=== PATIENT | female | born 1955 | race Caucasian/White ===

== ENCOUNTER 2017-02-01 12:41 | Inpatient (IN) | payer OTHER ==
[2017-02-01] MEDS ORDERED: HYDROmorphone 1 MG/ML CARPUJECT IVP STA ×3 (13:33→15:56)
[2017-02-01] MEDS ORDERED: ONDANSETRON 4 MG/2 ML VIAL IVP STA ×2 (13:33→15:25)
[2017-02-01] MEDS ORDERED: SODIUM CHLORIDE 0.9% 1,000 ML IV ONE ×2 (13:33→13:54)
--- NOTE | 2017-02-01 13:38 | ED Physician Documentation ---
PD HPI ABD PAIN - Stated complaint Stated Complaint: ABD PAIN - Chief complaint Chief Complaint: Abd Pain - History obtained from History obtained from: Patient, Family () - History of Present Illness Timing - onset: Other (61-year-old woman with history of cholecystectomy, appendectomy and known diverticula, also moderate alcohol use and gastric sleeve presents with gradual onset central abdominal pain radiating between the shoulder blades starting about 5 hours ago with retching. She had a normal bowel movement yesterday but none today. There is no associated fever or urinary complaints. She says it feels like her former pain back when she had her gallbladder, however it is more on the left than the right.) Review of Systems Ten Systems: 10 systems reviewed and negative Constitutional: denies: Fever, Chills Cardiac: denies: Chest pain / pressure, Palpitations Respiratory: denies: Dyspnea, Cough GI: reports: Abdominal Pain, Nausea, Vomiting. denies: Constipation, Diarrhea PD PAST MEDICAL HISTORY - Past Surgical History Past Surgical History: Yes General: Cholecystectomy, Appendectomy, Bowel surgery - Present Medications Home Medications: Ambulatory Orders Medication Instructions Recorded Confirmed Omeprazole [PriLOSEC] 20 mg PO DAILY 02/01/17 02/01/17 - Allergies Allergies/Adverse Reactions: Allergies Allergy/AdvReac Type Severity Reaction Status Date / Time Opioids - Morphine Analogues AdvReac Dizziness Verified 02/01/17 12:52 - Living Situation Living Situation: reports: With spouse/s.o. - Social History Does the pt smoke?: No Smoking Status: Former smoker Does the pt drink ETOH?: Yes - Family History Family history: reports: Non contributory PD ED PE NORMAL - Vitals Vital signs reviewed: Yes - General General: Alert and oriented X 3, Other (Quite uncomfortable, restless) - HEENT HEENT: PERRL, EOMI - Neck Neck: Supple, no meningeal sign, No bony TTP - Cardiac Cardiac: RRR, No murmur - Respiratory Respiratory: No respiratory distress, Clear bilaterally - Abdomen Abdomen: Normal bowel sounds, Soft, Other (Some right lower quadrant and left mid abdomen tenderness without surgical signs) - Back Back: No CVA TTP, No spinal TTP - Derm Derm: Normal color, Warm and dry - Extremities Extremities: No deformity, No tenderness to palpate, No edema, No calf tenderness / cord - Neuro Neuro: Alert and oriented X 3, Normal speech - Psych Psych: Normal mood, Normal affect Results - Vitals Vitals: Vital Signs - 24 hr 02/01/17 02/01/17 02/01/17 12:47 15:05 16:13 Temperature 36.8 C Heart Rate 92 63 59 L Respiratory 20 16 18 Rate Blood Pressure 151/85 H 124/75 140/78 H O2 Saturation 98 100 100 Oxygen O2 Source Room air - EKG (time done) 1545 Rate: Rate (enter#) (54) Rhythm: NSR [place]: Normal Intervals: Normal ID QRS: Normal Ischemia: Normal ST segments Computer interpretation: Agree with computer - Labs Labs: Laboratory Tests 02/01/17 02/01/17 02/01/17 13:45 13:45 13:45 WBC 6.6 RBC 4.43 Hgb 13.8 Hct 40.4 MCV 91.2 MCH 31.2 H MCHC 34.2 RDW 12.9 Plt Count 176 MPV 7.6 L Neut # 5.3 Lymph # 0.9 L [place] # 0.3 Eos # 0.0 Baso # 0.1 Absolute Nucleated RBC 0.00 Nucleated RBCs 0.0 Sodium 139 Potassium 3.7 Chloride 102 Carbon Dioxide 24 Anion Gap 13.0 BUN 11 Creatinine 0.7 Estimated GFR (MDRD) 85 L Glucose 110 H Calcium 10.5 H Total Bilirubin 0.7 AST 20 ALT 18 Alkaline Phosphatase 47 Troponin I < 0.04 Total Protein 7.9 Albumin 4.8 Globulin 3.1 Albumin/Globulin Ratio 1.5 Lipase 26 Urine Color Urine Clarity Urine pH Ur Specific [place] Urine Protein Urine Glucose (UA) Urine Ketones Urine Occult Blood Urine Nitrite Urine Bilirubin Urine Urobilinogen Ur Leukocyte Esterase Ur Microscopic Review Urine Culture Comments 02/01/17 15:19 WBC RBC Hgb Hct MCV MCH MCHC RDW Plt Count MPV Neut # Lymph # [place] # Eos # Baso # Absolute Nucleated RBC Nucleated RBCs Sodium Potassium Chloride Carbon Dioxide Anion Gap BUN Creatinine Estimated GFR (MDRD) Glucose Calcium Total Bilirubin AST ALT Alkaline Phosphatase Troponin I Total Protein Albumin Globulin Albumin/Globulin Ratio Lipase Urine Color YELLOW Urine Clarity CLEAR Urine pH 8.0 H Ur Specific [place] 1.010 Urine Protein NEGATIVE Urine Glucose (UA) NEGATIVE Urine Ketones 15 H Urine Occult Blood NEGATIVE Urine Nitrite NEGATIVE Urine Bilirubin NEGATIVE Urine Urobilinogen 1 (NORMAL) Ur Leukocyte Esterase NEGATIVE Ur Microscopic Review NOT INDICATED Urine Culture Comments NOT INDICATED - Rads (name of study) Ct A/P Radiology: EMP read contemporaneously (Small bowel obstruction with concern for a closed loop bowel obstruction with vascular compromise, could be ischemic enteritis as well. Status post gastric sleeve.) PD MEDICAL DECISION MAKING - ED course ED course: 61-year-old woman presents with acute abdominal pain, not necessarily clinically obstructed but CT suggestive of same and surgery consulted and will place in observation for serial exams and further workup. - Consults Consults: Consulted (name) (Dr. Chicas, the on-call surgeon, she will be the CAT scan and see the patient, we spoke at around 4:10 PM) Departure - Departure Disposition: ED Place in Observation Clinical Impression: Small bowel obstruction Abdominal pain Qualifiers: Abdominal location: generalized Qualified Code(s): R10.84 - Generalized abdominal pain Condition: Stable
[2017-02-01] MEDS ORDERED: ONDANSETRON 4 MG/2 ML VIAL ONE ×2 (13:53→15:46)
[2017-02-01] MEDS ORDERED: HYDROmorphone 1 MG/ML CARPUJECT ONE ×3 (13:53→16:14)
[2017-02-01] MEDS ORDERED: SODIUM CHLORIDE FLUSH 0.9% 10 ML SYRINGE IVP ONE ×2 (13:53→16:14)
[2017-02-01 14:27] LABS: ALBUMIN/GLOBULIN RATIO 1.5 (1.0-2.2); BILIRUBIN,TOTAL 0.7 mg/dL (0.2-1.0); CALCIUM 10.5 mg/dL (8.5-10.3); CREATININE 0.7 mg/dL (0.4-1.0); POTASSIUM 3.7 mmol/L (3.5-5.0); TOTAL PROTEIN 7.9 g/dL (6.7-8.2)
[2017-02-01 14:32] LABS: BASOPHILS # (AUTO) 0.1 10^3/uL (0.0-0.1); BASOPHILS % (AUTO) 0.9 %; EOSINOPHILS % (AUTO) 0.3 %; HCT - HEMATOCRIT 40.4 % (37.0-47.0); HGB - HEMOGLOBIN 13.8 g/dL (12.0-16.0); LYMPHOCYTES # (AUTO) 0.9 10^3/uL (1.5-3.5); LYMPHOCYTES % (AUTO) 14.4 %; MEAN CORPUSCULAR HEMOGLOBIN 31.2 pg (27.0-31.0); MEAN CORPUSCULAR HGB CONC 34.2 g/dL (32.0-36.0); MEAN CORPUSCULAR VOLUME 91.2 fL (81.0-99.0); MEAN PLATELET VOLUME 7.6 fL (7.9-10.8); MONOCYTES # (AUTO) 0.3 10^3/uL (0.0-1.0); MONOCYTES % (AUTO) 4.3 %; NEUTROPHILS # (AUTO) 5.3 10^3/uL (1.5-6.6); NEUTROPHILS % (AUTO) 80.1 %; RED BLOOD COUNT 4.43 10^6/uL (4.20-5.40); RED CELL DISTRIBUTION WIDTH 12.9 % (12.0-15.0); UNCORRECTED WHITE BLOOD COUNT 6.6 x10^3/uL; WHITE BLOOD COUNT 6.6 x10^3/uL (4.8-10.8)
[2017-02-01] MEDS ORDERED: IOPAMIDOL-300 100 ML VIAL IVP ONE (15:14)
[2017-02-01 15:33] LABS: BILIRUBIN,URINE NEGATIVE (NEGATIVE)
[2017-02-01 15:34] LABS: UA CHARGE (STRIP ONLY) YES; UR CULTURE IF IND NOT INDICATED
--- NOTE | 2017-02-01 15:58 | CT Preliminary Report ---
Exam: CT Abdomen/Pelvis W/ IMPRESSION: 1. There is borderline dilated, fluid-filled lower abdomen small bowel with associated dense mesenter ic edema. Findings are suspicious for small bowel obstruction, possibly closed loop, with vascular co mpromise. Differential consideration would be primary small bowel ischemic enteritis. Enteritis secon ghulam to infection or inflammatory bowel disease are possible but less likely given this appearance. S urgical consultation is recommended. 2. Status post gastric sleeve procedure. CT appearance of the postoperative stomach is within normal limits. 3. No acute solid abdominal organ abnormalities are seen. [facility] SITE ID: [id number]
--- NOTE | 2017-02-01 16:01 | CT Report ---
EXAM: CT ABDOMEN AND PELVIS EXAM DATE: 02/01/2017 02:54 PM. CLINICAL HISTORY: Abdominal pain. COMPARISONS: None. TECHNIQUE: Routine helical CT imaging was performed through the abdomen and pelvis. IV contrast: Yes. Enteric contrast: No. Reconstructions: Coronal and sagittal. In accordance with CT protocol optimization, one or more of the following dose reduction techniques w ere utilized for this exam: automated exposure control, adjustment of mA and/or KV based on patient s ize, or use of iterative reconstructive technique. FINDINGS: Lung Bases: Unremarkable. Liver: Normal. No masses. Gallbladder/Bile Ducts: The gallbladder surgically absent. There is no significant bile duct dilatati on. Spleen: Normal. Pancreas: Normal. Adrenal Glands: There is subcentimeter left adrenal nodule. No acute abnormalities are seen. Kidneys: Normal. No masses or hydronephrosis. Peritoneal Cavity/Bowel: Patient has undergone gastric sleeve procedure. Stomach demonstrates no acut e abnormalities. There is borderline dilated, fluid-filled lower abdomen small bowel with dense adjac ent mesenteric edema. There is a small amount of free fluid within the pelvis. The colon demonstrates no acute abnormalities. No evidence of appendicitis. No enlarged mesenteric or retroperitoneal lymph nodes. Pelvic Organs: No acute pelvic organ abnormalities are seen. Urinary bladder is decompressed. The resighini lamar is surgically absent. Vasculature: There are scattered atheromatous calcifications of the aorta and iliac vessels. Bones: No significant abnormality. Other: There is a small fat-containing paraumbilical hernia without evidence of associated inflammati on. IMPRESSION: 1. There is borderline dilated, fluid-filled lower abdomen small bowel with associated dense mesenter ic edema. Findings are suspicious for small bowel obstruction, possibly closed loop, with vascular co mpromise. Differential consideration would be primary small bowel ischemic enteritis. Enteritis secon ghulam to infection or inflammatory bowel disease are possible but less likely given this appearance. S urgical consultation is recommended. 2. Status post gastric sleeve procedure. CT appearance of the postoperative stomach is within normal limits. 3. No acute solid abdominal organ abnormalities are seen. [facility] The above findings were discussed with Dr Escalante by Dr. Dusty Mcnair at 15:56 hrs on 02/01/17. Referring Provider Line: [phone] SITE ID: [id number]
--- NOTE | 2017-02-01 17:12 | HISTORY & PHYSICAL EXAMINATION ---
DATE OF ADMISSION: 02/01/2017 HISTORY OF PRESENT ILLNESS: This is a 61-year-old female with multiple abdominal surgeries who presented to the emergency department today with a 1- day history of diffuse cramping abdominal pain. [place] previous to this and states that she was consuming 4-5 alcoholic beverages per day. Otherwise she has not changed her diet and has not had any abnormal bowel movements. Her last bowel movement was yesterday. She is passing gas. She is nauseous, but has not vomited. She has a surgical history of a gastric sleeve performed several years ago, as well as a laparoscopic cholecystectomy and laparoscopic appendectomy. On evaluation in the emergency department labs were obtained which demonstrated a normal white blood cell count. A CT scan of the abdomen was performed without oral contrast. This demonstrates borderline dilated fluid filled loops of small bowel with mesenteric edema concerning for possible bowel obstruction. For this reason a surgical consultation was obtained. On my evaluation of the patient she is resting in her bed comfortably. PAST MEDICAL HISTORY: GERD. PAST SURGICAL HISTORY: As stated. HOME MEDICATIONS: 1. Prilosec daily. 2. Multiple vitamin supplementations. ALLERGIES TO MEDICATIONS: OPIOIDS MAKE HER NAUSEOUS AND GIVE HER ALTERED MENTAL STATUS. SOCIAL HISTORY: The patient is . She is retired. She lives on the [place]. PHYSICAL EXAM: VITAL SIGNS: Temperature 36.8, blood pressure 151/85, heart rate 92, respiratory rate 20, O2 saturation is 98% on room air. GENERAL: She is awake, alert, oriented x3 in no acute distress. She is of average build. CARDIOVASCULAR: Regular rate and rhythm. CHEST: Clear to auscultation bilaterally with no rhonchi or wheezing. ABDOMEN: Soft, nondistended, very mildly tender to palpation with no guarding and no rebound tenderness. There was no point tenderness at all on her abdomen. EXTREMITIES: Not edematous. LAB VALUES: Sodium 139, potassium 3.7, chloride 102, bicarb 24, BUN 11, creatinine 0.7, glucose 110, white blood cell count 6.6, hemoglobin 13.8, hematocrit 40.4, platelets 176. ASSESSMENT: This is a 61-year-old female with abdominal pain and a CT scan that may suggest a possible bowel obstruction. PLAN: I do not think the patient has a bowel obstruction. However, I will admit the patient for observation and obtain a small bowel follow through tomorrow. She will be kept NPO during this process, a lactate will be performed to ensure there is no underlying bowel ischemia present. Serial abdominal exams will be performed. If her small bowel series does not demonstrate any evidence of obstruction she will be started on a diet and will likely be discharged home tomorrow. This is all explained to the patient. JOB #: [id number] EXT JOB #:[id number] ANASTACIO
[2017-02-01] MEDS: ONDANSETRON 4 MG/2 ML VIAL IVP PRN (18:21)
[2017-02-01] MEDS: MORPHINE 2 MG/ML CARPUJECT IVP PRN ×3 (18:21→22:42)
[2017-02-01] MEDS: SODIUM CHLORIDE FLUSH 0.9% 10 ML SYRINGE IVP SCH (18:21)
[2017-02-01] MEDS: LACTATED RINGERS 1,000 ML IV SCH (18:21)
[2017-02-02] MEDS: MORPHINE 2 MG/ML CARPUJECT IVP PRN ×9 (01:36→23:38)
[2017-02-02] MEDS: ONDANSETRON 4 MG/2 ML VIAL IVP PRN ×4 (01:36→23:38)
[2017-02-02] MEDS: SODIUM CHLORIDE FLUSH 0.9% 10 ML SYRINGE IVP PRN (01:37)
[2017-02-02] MEDS: LACTATED RINGERS 1,000 ML IV SCH ×3 (03:58→23:37)
[2017-02-02] MEDS: SODIUM CHLORIDE FLUSH 0.9% 10 ML SYRINGE IVP SCH ×3 (06:25→21:19)
[2017-02-02] MEDS ORDERED: BARIUM SULFATE 148 GM POWDER PO ONE (15:35)
--- NOTE | 2017-02-02 16:37 | XRAY Report ---
SMALL BOWEL FOLLOWTHROUGH: 02/02/2017 CLINICAL INDICATION: Evaluate obstruction. FINDINGS: Initial laborer airport maintenance view of the abdomen demonstrates postoperative changes of gastric sleeve and cholecystectomy. The patient ingested barium. Some barium was vomited during the course of the examination. There is dilatation of the duodenum and jejunum, with an abrupt caliber transition in the midline upper pelvis. A small amount of contrast did move past the obstruction site, with nondilated small bowel loops first visualized on the 30-minute film, and contrast in the ascending colon at 3 hours. IMPRESSION: PARTIAL SMALL BOWEL OBSTRUCTION, WITH THE TRANSITION POINT IN THE MID SMALL BOWEL. FLUOROSCOPY TIME: 1 minute, 31 seconds; 3 spot images obtained. JOB #: [id number] EXT JOB #: [id number] ANASTACIO
[2017-02-02] MEDS ORDERED: MINERAL OIL ENEMA 133 ML BOTTLE RC SCH (18:00)
[2017-02-03] MEDS: MORPHINE 2 MG/ML CARPUJECT IVP PRN ×3 (02:31→12:22)
[2017-02-03] MEDS: SODIUM CHLORIDE FLUSH 0.9% 10 ML SYRINGE IVP SCH ×3 (05:16→15:41)
[2017-02-03 06:10] LABS: BASOPHILS # (AUTO) 0.1 10^3/uL (0.0-0.1); BASOPHILS % (AUTO) 0.7 %; EOSINOPHILS % (AUTO) 0.3 %; HCT - HEMATOCRIT 41.6 % (37.0-47.0); HGB - HEMOGLOBIN 13.8 g/dL (12.0-16.0); LYMPHOCYTES # (AUTO) 1.3 10^3/uL (1.5-3.5); LYMPHOCYTES % (AUTO) 11.5 %; MEAN CORPUSCULAR HGB CONC 33.1 g/dL (32.0-36.0); MEAN CORPUSCULAR VOLUME 93.4 fL (81.0-99.0); MEAN PLATELET VOLUME 7.9 fL (7.9-10.8); MONOCYTES # (AUTO) 0.9 10^3/uL (0.0-1.0); NEUTROPHILS # (AUTO) 9.1 10^3/uL (1.5-6.6); NEUTROPHILS % (AUTO) 79.5 %; RED BLOOD COUNT 4.45 10^6/uL (4.20-5.40); RED CELL DISTRIBUTION WIDTH 12.7 % (12.0-15.0); UNCORRECTED WHITE BLOOD COUNT 11.5 x10^3/uL; WHITE BLOOD COUNT 11.5 x10^3/uL (4.8-10.8)
[2017-02-03] MEDS: ONDANSETRON 4 MG/2 ML VIAL IVP PRN ×3 (06:13→18:15)
[2017-02-03 06:29] LABS: CALCIUM 9.2 mg/dL (8.5-10.3); CREATININE 0.6 mg/dL (0.4-1.0)
--- NOTE | 2017-02-03 07:55 | PROVIDER PROGRESS NOTE ---
Subjective - Prog Note Date Prog Note Date: 02/03/17 - Subjective Pt reports feeling: Improved Subjective: Improved abdominal pain and nausea since placement of NGT. NGT has drained approximately 400 cc. Objective - Vital Signs/Intake & Output Reviewed Vital Signs: Yes Vital Signs: Vital Signs x48h Temp Pulse Resp BP Pulse Ox 02/03/17 05:58 37.5 C 83 16 96/50 L 97 02/03/17 00:44 37.2 C 78 16 110/54 L 96 Intake & Output: Intake & Output 01/31/17 02/01/17 02/02/17 02/03/17 23:59 23:59 23:59 23:59 Output Total 400 250 Balance -400 -250 - Objective General Appearance: positive: No acute distress Respiratory: positive: No respiratory distress Cardiovascular: positive: Regular rate & rhythm Abdomen: positive: Other (soft and non-distended. non-tender to palpation) Neurologic/Psychiatric: positive: Oriented x3 - Lab Results Fish Bones: 02/03/17 05:53 02/03/17 05:53 Other Labs: Lab Results x24hrs 02/03/17 02/03/17 Range/Units 05:53 05:53 WBC 11.5 H (4.8-10.8) x10^3/uL RBC 4.45 (4.20-5.40) 10^6/uL Hgb 13.8 (12.0-16.0) g/dL Hct 41.6 (37.0-47.0) % MCV 93.4 (81.0-99.0) fL MCH 31.0 (27.0-31.0) pg MCHC 33.1 (32.0-36.0) g/dL RDW 12.7 (12.0-15.0) % Plt Count 153 (130-450) 10^3/uL MPV 7.9 (7.9-10.8) fL Neut # 9.1 H (1.5-6.6) 10^3/uL Lymph # 1.3 L (1.5-3.5) 10^3/uL [place] # 0.9 (0.0-1.0) 10^3/uL Eos # 0.0 (0.0-0.7) 10^3/uL Baso # 0.1 (0.0-0.1) 10^3/uL Absolute Nucleated RBC 0.00 x10^3/uL Nucleated RBCs 0.0 /100WBC Sodium 141 (135-145) mmol/L Potassium 4.0 (3.5-5.0) mmol/L Chloride 103 (101-111) mmol/L Carbon Dioxide 28 (21-32) mmol/L Anion Gap 10.0 (6-13) BUN 9 (6-20) mg/dL Creatinine 0.6 (0.4-1.0) mg/dL Estimated GFR (MDRD) 102 (>89) Glucose 85 (70-100) mg/dL Calcium 9.2 (8.5-10.3) mg/dL Assessment/Plan - Problem List (1) Small bowel obstruction Impression: small bowel series demonstrates partial bowel obstruction. NGT placed yesterday pm for severe nausea and cramping abdominal pain. will administer miralax via NGT today and clamp NGT encouraged ambulation continue IV fluid resuscitation monitor I and O
[2017-02-03] MEDS: LACTATED RINGERS 1,000 ML IV SCH ×2 (09:40→19:19)
[2017-02-03] MEDS: POLYETHYLENE GLYCOL 3350 17 GM PACKET NG SCH (09:58)
--- NOTE | 2017-02-03 14:33 | PROVIDER PROGRESS NOTE ---
Subjective - Prog Note Date Prog Note Date: 02/02/17 - Subjective Pt reports feeling: Worse Subjective: increased nausea and dry heaving since administration of barium. No flatus, no BM. + cramping abdominal pain. Small bowel series demonstrates possible bowel obstruction. Objective - Vital Signs/Intake & Output Reviewed Vital Signs: Yes Vital Signs: Vital Signs x48h Temp Pulse Resp BP Pulse Ox 02/03/17 13:35 63 92/60 02/03/17 11:11 37.1 C 70 16 90/55 L 98 Intake & Output: Intake & Output 01/31/17 02/01/17 02/02/17 02/03/17 23:59 23:59 23:59 23:59 Intake Total 1006 Output Total 400 250 Balance -400 756 - Objective General Appearance: positive: No acute distress Respiratory: positive: No respiratory distress Cardiovascular: positive: Regular rate & rhythm Abdomen: positive: Other (soft and slightly distended. Mild TTP with no gaurding and no peritoneal signs) Extremities: positive: No pedal edema Neurologic/Psychiatric: positive: Oriented x3 - Lab Results Fish Bones: 02/03/17 05:53 02/03/17 05:53 Other Labs: Lab Results x24hrs 02/03/17 02/03/17 Range/Units 05:53 05:53 WBC 11.5 H (4.8-10.8) x10^3/uL RBC 4.45 (4.20-5.40) 10^6/uL Hgb 13.8 (12.0-16.0) g/dL Hct 41.6 (37.0-47.0) % MCV 93.4 (81.0-99.0) fL MCH 31.0 (27.0-31.0) pg MCHC 33.1 (32.0-36.0) g/dL RDW 12.7 (12.0-15.0) % Plt Count 153 (130-450) 10^3/uL MPV 7.9 (7.9-10.8) fL Neut # 9.1 H (1.5-6.6) 10^3/uL Lymph # 1.3 L (1.5-3.5) 10^3/uL [place] # 0.9 (0.0-1.0) 10^3/uL Eos # 0.0 (0.0-0.7) 10^3/uL Baso # 0.1 (0.0-0.1) 10^3/uL Absolute Nucleated RBC 0.00 x10^3/uL Nucleated RBCs 0.0 /100WBC Sodium 141 (135-145) mmol/L Potassium 4.0 (3.5-5.0) mmol/L Chloride 103 (101-111) mmol/L Carbon Dioxide 28 (21-32) mmol/L Anion Gap 10.0 (6-13) BUN 9 (6-20) mg/dL Creatinine 0.6 (0.4-1.0) mg/dL Estimated GFR (MDRD) 102 (>89) Glucose 85 (70-100) mg/dL Calcium 9.2 (8.5-10.3) mg/dL Assessment/Plan - Problem List (1) Small bowel obstruction Impression: Place NGT and decompress. Will trial Milk of Magnesia tomorrow. I have discussed with the patient that if she fails to improve in the next 24 to 48 hours surgery will be warranted. She has no signs to suggest underlying bowel ischemia. Serial Abdominal exam will ensue.
[2017-02-04] MEDS: ONDANSETRON 4 MG/2 ML VIAL IVP PRN ×2 (04:45→11:28)
[2017-02-04] MEDS: LACTATED RINGERS 1,000 ML IV SCH ×2 (04:45→17:31)
[2017-02-04] MEDS: SODIUM CHLORIDE FLUSH 0.9% 10 ML SYRINGE IVP SCH ×3 (05:01→17:31)
[2017-02-04] MEDS: POLYETHYLENE GLYCOL 3350 17 GM PACKET NG SCH (09:03)
[2017-02-04] MEDS: MORPHINE 2 MG/ML CARPUJECT IVP PRN ×3 (11:28→20:28)
[2017-02-04] MEDS: SODIUM CHLORIDE FLUSH 0.9% 10 ML SYRINGE IVP PRN (11:29)
--- NOTE | 2017-02-04 12:30 | PROVIDER PROGRESS NOTE ---
Subjective - Prog Note Date Prog Note Date: 02/04/17 - Subjective Pt reports feeling: No change Subjective: She still has not passed flatus. Continues to become nauseous when NGT is off suction. Objective - Vital Signs/Intake & Output Reviewed Vital Signs: Yes Vital Signs: Vital Signs x48h Temp Pulse Resp BP Pulse Ox 02/04/17 08:09 37.3 C 70 16 90/53 L 95 Intake & Output: Intake & Output 02/01/17 02/02/17 02/03/17 02/04/17 23:59 23:59 23:59 23:59 Intake Total 2262 753 Output Total 400 1050 100 Balance -400 1212 653 - Objective General Appearance: positive: No acute distress Respiratory: positive: No respiratory distress Cardiovascular: positive: Regular rate & rhythm Abdomen: positive: Other (soft, non-distended, non-tender to palpation) Extremities: positive: No pedal edema Neurologic/Psychiatric: positive: Oriented x3 - Lab Results Fish Bones: 02/03/17 05:53 02/03/17 05:53 Assessment/Plan - Problem List (1) Small bowel obstruction Impression: Due to failure of conservative treatment patient will require surgery. I am planning laparoscopic exploration, If adhesions are minimal laparoscopic FERNANDO will be performed. If extensive, laparotomy will be performed with possible bowel resection. The procedure was explained to the patient in detail including potential risks involved and she agrees to proceed.
[2017-02-04] MEDS ORDERED: LACTATED RINGERS 1,000 ML IV ONE ×2 (13:55→15:15)
[2017-02-04] MEDS ORDERED: BUPIVACAINE 0.5%-EPI 1:200000 PF 30 ML VIAL SUBQ ONE ×2 (14:18→14:30)
[2017-02-04] MEDS ORDERED: fentaNYL 100 MCG/2 ML VIAL IVP ONE (16:10)
[2017-02-04] MEDS ORDERED: PHENYLEPHRINE 10 MG/ML VIAL IV ONE (16:10)
[2017-02-04] MEDS ORDERED: ceFAZolin 1 GM VIAL IV ONE (16:10)
[2017-02-04] MEDS ORDERED: ACETAMINOPHEN 1,000 MG/100 ML 100 ML IV ONE (16:10)
[2017-02-04] MEDS ORDERED: NEOSTIGMINE 1 MG/1 ML 10 ML MDV IVP ONE (16:10)
[2017-02-04] MEDS ORDERED: DEXAMETHASONE 4 MG/ML VIAL IVP ONE (16:10)
[2017-02-04] MEDS ORDERED: SUCCINYLCHOLINE 200 MG/10 ML VIAL IVP ONE (16:10)
[2017-02-04] MEDS ORDERED: GLYCOPYRROLATE 1 MG/5 ML VIAL IVP ONE (16:10)
[2017-02-04] MEDS ORDERED: ROCURONIUM 50 MG/5 ML VIAL IVP ONE (16:10)
[2017-02-04] MEDS ORDERED: LIDOCAINE-MPF 2% 5 ML VIAL IM ONE (16:10)
[2017-02-04] MEDS ORDERED: ACETAMINOPHEN 1,000 MG/100 ML VIAL IV ONE (16:10)
[2017-02-04] MEDS ORDERED: MIDAZOLAM 2 MG/2 ML VIAL IVP ONE (16:10)
[2017-02-04] MEDS ORDERED: SODIUM CHLORIDE 0.9% 10 ML VIAL IV ONE (16:10)
[2017-02-04] MEDS ORDERED: PROPOFOL 200 MG/20 ML VIAL IVP ONE (16:10)
[2017-02-04] MEDS ORDERED: ONDANSETRON 4 MG/2 ML VIAL IVP ONE (16:10)
[2017-02-04] MEDS: fentaNYL 100 MCG/2 ML VIAL ONE ×2 (16:25→16:48)
[2017-02-04] MEDS ORDERED: SENNA 528 MG/15 ML SYRUP PO PRN (16:29)
[2017-02-05] MEDS: LACTATED RINGERS 1,000 ML IV SCH ×3 (02:46→21:47)
--- NOTE | 2017-02-05 02:52 | OPERATIVE REPORT ---
DATE OF SURGERY: 02/04/2017 00:00:00 SURGEON: Guera Chicas MD. PREOPERATIVE DIAGNOSIS: Bowel obstruction. POSTOPERATIVE DIAGNOSES: Bowel obstruction. INDICATION FOR PROCEDURE: This is a 61-year-old female who was admitted to the hospital on 02/01 and diagnosed with partial bowel obstruction. She failed to resolve this with conservative management and is subsequently being taken to the operating room for laparoscopic exploration. NAME OF PROCEDURE: laparoscopic exploration, extensive lysis of adhesions FINDINGS: After obtaining informed consent from the patient, she was brought into the operating room and positioned on the operating table in the supine position, taking note of pressure points. She was intubated by Anesthesia. She was administered 2 grams of Ancef and 500 mg of Flagyl. A Toscano catheter was inserted. She was then prepped and draped in the usual sterile fashion and a time-out was taken according to protocol. A supraumbilical 1 cm incision was created and using Alfaro technique, the abdominal cavity was carefully entered. There were some omental adhesions just below the umbilicus, creating some difficulty with passage of the scope; however, I was eventually able to pass the scope into the free peritoneal cavity. An additional 5 mm port was placed in the patient's left upper quadrant and the patient's right upper quadrant as the pelvic region had dense adhesions. The camera was then exchanged for a 5 mm camera and placed in the left upper quadrant. In the pelvis, there were noted to be multiple omental adhesions to the anterior abdominal wall and extensive lysis of adhesions was performed using a combination of blunt dissection and the harmonic device. I spent approximately 60 minutes taking down omental adhesions. Once this was completed, the omentum was inspected for any signs of bleeding, and this was noted to be controlled. I then ran the bowel from the cecum towards the ligament of Treitz; however, I was only able to do this about [address] and then began running the bowel from the ligament of Treitz backwards towards the cecum. I was eventually able to evaluate the entire small bowel. I did note a segment of omental adhesions that was causing compression of the distal small bowel and this appeared to be the location of the bowel obstruction. This omental adhesion was lysed to remove the obstruction. The abdominal cavity was then suction irrigated to ensure all irrigation fluid was clear. The Yomi port was then removed, and the umbilical incision was closed with a Geofrfey-Santana device using a 0 [id number] Vicryl suture. The abdominal cavity was allowed to desufflate. The skin incisions were then closed with 4-0 Monocryl and Dermabond was applied. The patient was extubated and taken to the recovery room in stable condition. ESTIMATED BLOOD LOSS: 50 mL. COMPLICATIONS: None. SPECIMENS: None. JOB #: [id number] EXT JOB #:[id number] [facility]
[2017-02-05] MEDS: SODIUM CHLORIDE FLUSH 0.9% 10 ML SYRINGE IVP SCH ×3 (06:36→18:45)
[2017-02-05 09:19] LABS: BASOPHILS % (AUTO) 0.5 %; EOSINOPHILS # (AUTO) 0.1 10^3/uL (0.0-0.7); EOSINOPHILS % (AUTO) 0.8 %; HGB - HEMOGLOBIN 11.8 g/dL (12.0-16.0); LYMPHOCYTES # (AUTO) 1.2 10^3/uL (1.5-3.5); MEAN CORPUSCULAR HEMOGLOBIN 31.9 pg (27.0-31.0); MEAN CORPUSCULAR HGB CONC 34.8 g/dL (32.0-36.0); MEAN CORPUSCULAR VOLUME 91.9 fL (81.0-99.0); MEAN PLATELET VOLUME 8.1 fL (7.9-10.8); MONOCYTES # (AUTO) 0.7 10^3/uL (0.0-1.0); MONOCYTES % (AUTO) 8.8 %; NEUTROPHILS # (AUTO) 6.4 10^3/uL (1.5-6.6); NEUTROPHILS % (AUTO) 75.9 %; RED CELL DISTRIBUTION WIDTH 12.4 % (12.0-15.0); UNCORRECTED WHITE BLOOD COUNT 8.4 x10^3/uL; WHITE BLOOD COUNT 8.4 x10^3/uL (4.8-10.8)
[2017-02-05 09:28] LABS: CALCIUM 8.8 mg/dL (8.5-10.3); CREATININE 0.6 mg/dL (0.4-1.0); POTASSIUM 3.8 mmol/L (3.5-5.0)
[2017-02-05] MEDS ORDERED: SENNA SYRUP 8.8 MG/5 ML UDC PO PRN (09:54)
--- NOTE | 2017-02-05 12:36 | PROVIDER PROGRESS NOTE ---
Subjective - General Admit Date: 02/02/17 Procedure Date: 02/04/17 Post Op Days: 1 Procedure Performed: laparoscopic FERNANDO - Review of Systems Wound/Incisions: positive: Healing well Drain Type: NGT Drain Output Description: bilious Approximate mls Output: 100 General: positive: Weakness Pulmonary: positive: No symptoms Cardiovascular: positive: No symptoms Gastrointestinal: positive: Other (minimal abdominal pain). negative: Nausea, Vomiting, Flatus Genitourinary: positive: No symptoms Musculoskeletal: positive: No symptoms Psychiatric: positive: No symptoms Objective - Patient Data Reviewed Vital Signs: Yes Vital Signs: Vital Signs x48h Temp Pulse Resp BP Pulse Ox 02/05/17 07:58 36.8 C 74 18 101/63 98 Intake & Output: Intake and Output Totals x24h 02/03/17 02/04/17 02/05/17 23:59 23:59 23:59 Intake Total 2262 2119 907 Output Total 1050 100 Balance 1212 2019 907 - Lab Results Lab Results: 02/05/17 09:13 02/05/17 09:13 Other Lab Results: Lab Results x24hrs 02/05/17 02/05/17 Range/Units 09:13 09:13 WBC 8.4 (4.8-10.8) x10^3/uL RBC 3.70 L (4.20-5.40) 10^6/uL Hgb 11.8 L (12.0-16.0) g/dL Hct 34.0 L (37.0-47.0) % MCV 91.9 (81.0-99.0) fL MCH 31.9 H (27.0-31.0) pg MCHC 34.8 (32.0-36.0) g/dL RDW 12.4 (12.0-15.0) % Plt Count 134 (130-450) 10^3/uL MPV 8.1 (7.9-10.8) fL Neut # 6.4 (1.5-6.6) 10^3/uL Lymph # 1.2 L (1.5-3.5) 10^3/uL [place] # 0.7 (0.0-1.0) 10^3/uL Eos # 0.1 (0.0-0.7) 10^3/uL Baso # 0.0 (0.0-0.1) 10^3/uL Absolute Nucleated RBC 0.00 x10^3/uL Nucleated RBCs 0.0 /100WBC Sodium 140 (135-145) mmol/L Potassium 3.8 (3.5-5.0) mmol/L Chloride 101 (101-111) mmol/L Carbon Dioxide 30 (21-32) mmol/L Anion Gap 9.0 (6-13) BUN 10 (6-20) mg/dL Creatinine 0.6 (0.4-1.0) mg/dL Estimated GFR (MDRD) 102 (>89) Glucose 78 (70-100) mg/dL Calcium 8.8 (8.5-10.3) mg/dL - Current Medications Current Medications: Current Medications Generic Name Dose Route Start Last Admin Trade Name Freq PRN Reason Stop Dose Admin Lactated Ringer's 1,000 mls @ 100 mls/hr 02/01/17 17:00 02/05/17 02:46 Lr IV 100 mls/hr .Q10H CHASE Administration Morphine Sulfate 2 mg 02/01/17 16:53 02/04/17 20:28 Morphine IVP 2 mg Q2HR PRN Administration Pain 8 to 10 Ondansetron HCl 4 mg 02/01/17 16:54 02/04/17 11:28 Zofran Inj IVP 4 mg Q6HR PRN Administration Nausea / Vomiting Senna 17.6 mg 02/05/17 09:54 02/05/17 11:05 Senokot Syrup PO 17.6 mg DAILY PRN Administration Constipation Sodium Chloride 10 ml 02/01/17 16:53 02/04/17 11:29 Normal Saline Flush 0.9% IVP 10 ml PRN PRN Administration NEEDED PER PROVIDER ORDERS Sodium Chloride 10 ml 02/01/17 22:00 02/05/17 06:36 Normal Saline Flush 0.9% IVP Not Given Q8HR CHASE - Physical Exam Wound/Incisions: positive: Healing well General Appearance: positive: No acute distress Respiratory: positive: No respiratory distress Cardiovascular: positive: Regular rate & rhythm Abdomen: positive: Other (soft, non-distended, non-tender to light palpation) Extremities: positive: No pedal edema Neurologic/Psychiatric: positive: Oriented x3 Impression/Plan - Problem List Problem List: s/p laparoscopic FERNANDO POD 1 - encourage ambulation - once patient is passing flatus will DC NGT and start clears - senna syrup started. - anticipate DC home once patient is able to have a bowel movement and tolerate a regular diet. This could be 1-5 days but likely will be within the next 48 hours.
[2017-02-06] MEDS: SODIUM CHLORIDE FLUSH 0.9% 10 ML SYRINGE IVP SCH ×2 (06:18→13:36)
[2017-02-06] MEDS: LACTATED RINGERS 1,000 ML IV SCH (07:30)
--- NOTE | 2017-02-06 09:50 | PROVIDER PROGRESS NOTE ---
Subjective - General Admit Date: 02/02/17 Procedure Date: 02/04/17 Post Op Days: 2 Procedure Performed: laparoscopic FERNANDO - Review of Systems Wound/Incisions: positive: Healing well Drain Type: NGT Drain Output Description: bilious Approximate mls Output: 100 Pulmonary: positive: No symptoms Cardiovascular: positive: No symptoms Gastrointestinal: positive: Other (minimal abdominal pain bowel movement today) . negative: Nausea, Vomiting, Flatus Genitourinary: positive: No symptoms Musculoskeletal: positive: No symptoms Psychiatric: positive: No symptoms Objective - Patient Data Vital Signs: Vital Signs x48h Temp Pulse Resp BP Pulse Ox 02/06/17 08:02 36.6 C 70 19 117/70 97 Intake & Output: Intake and Output Totals x24h 02/04/17 02/05/17 02/06/17 23:59 23:59 23:59 Intake Total 9 1929 480 Output Total 100 100 Balance 2019 9 480 - Lab Results Lab Results: 02/05/17 09:13 02/05/17 09:13 - Current Medications Current Medications: Current Medications Generic Name Dose Route Start Last Admin Trade Name Freq PRN Reason Stop Dose Admin Lactated Ringer's 1,000 mls @ 100 mls/hr 02/01/17 17:00 02/06/17 07:30 Lr IV 100 mls/hr .Q10H CHASE Administration Morphine Sulfate 2 mg 02/01/17 16:53 02/04/17 20:28 Morphine IVP 2 mg Q2HR PRN Administration Pain 8 to 10 Ondansetron HCl 4 mg 02/01/17 16:54 02/04/17 11:28 Zofran Inj IVP 4 mg Q6HR PRN Administration Nausea / Vomiting Senna 17.6 mg 02/05/17 09:54 02/05/17 11:05 Senokot Syrup PO 17.6 mg DAILY PRN Administration Constipation Sodium Chloride 10 ml 02/01/17 16:53 02/04/17 11:29 Normal Saline Flush 0.9% IVP 10 ml PRN PRN Administration NEEDED PER PROVIDER ORDERS Sodium Chloride 10 ml 02/01/17 22:00 02/06/17 06:18 Normal Saline Flush 0.9% IVP Not Given Q8HR CHASE - Physical Exam Wound/Incisions: positive: Healing well Abdomen: positive: Non-tender Impression/Plan - Problem List Problem List: s/p laparoscopic los pod#2. Doing well. Bowel function returning as she had a bowel movement earlier today. Tolerating liquids. Advance diet.
[2017-02-06 15:46] VITALS: BP 109/58
--- NOTE | 2017-02-06 19:44 | Discharge Plan ---
Discharge Plan Disposition: Home, Self Care Condition: Stable Prescriptions: HYDROcod/ACETAM 325 [[place] /325] 1 - 2 each PO Q4H PRN #40 tablet PRN Reason: Pain Diet: Regular Activity Restrictions: no lifting over 15 lbs Shower Restrictions: No Driving Restrictions: Yes Weight Bearing: Full Weight Additional Instructions or Follow Up instructions: f/u Dr Chicas 7-10 days No Smoking: If you smoke, Please STOP! Call for help. Follow-up with: FLORY CHICAS MD [Provider Admit Priv/Credential] - 1 Week
--- NOTE | 2017-02-11 10:22 | DISCHARGE SUMMARY ---
DATE OF ADMISSION: 02/02/2017 DATE OF DISCHARGE: 02/06/2017 ADMITTING DIAGNOSIS: Bowel obstruction. DISCHARGE DIAGNOSIS: Bowel obstruction. HOSPITAL COURSE: This is a 61-year-old female who was admitted through the emergency department for partial small-bowel obstruction. An NG tube was placed and the patient was managed conservatively for the first 48 hours; however, she failed to improve. She did undergo a Gastrografin small bowel series and this demonstrated a partial small-bowel obstruction with the likely location of the obstruction being in the mid small bowel. After 48 hours, she was taken to the operating room for exploratory laparoscopy. An adhesion was noted in the left pelvis and this was lysed. She was transferred to the floor postoperatively with the NG tube remaining in place. She began passing gas on postoperative day 1. She was ambulating and the NG tube was removed. Her diet was slowly advanced. She was placed on stool softeners. She was tolerating a diet and having bowel movements on the day of discharge. Her condition on discharge was good. She was discharged home with prescriptions for Percocet and for stool softeners. She was instructed to follow up with me in the office in 2 weeks. Instructions on wound care were provided for the patient, as well as for preventing recurrent bowel obstruction. Condition on Discharge: stable JOB #: [id number] EXT JOB #:[id number] ANASTACIO
== END 2017-02-06 20:22 | disposition home or self-care (01) | DRG 337 ==
LOC: ED 12:41 → OBS 16:53 → OBSVTOIN 02-02 17:53 → MS2 02-02 20:14
PROVIDERS: ADMIT Surgery; ATTEND Surgery
PROC: 0DN84ZZ Release Small Intestine, Percutaneous Endoscopic Approach (ICD-10-PCS; principal; 2017-02-04 13:15)
DX: K56.5 Intestinal adhesions [bands] with obstruction (postinfection) (principal); K21.9 Gastro-esophageal reflux disease without esophagitis; Z87.891 Personal history of nicotine dependence; Z90.49 Acquired absence of other specified parts of digestive tract; Z87.19 Personal history of other diseases of the digestive system; Z90.3 Acquired absence of stomach [part of]
CPT/HCPCS: 36415; 74177; 74250; 80048; 80053; 81001; 81003; 83605; 83690; 84484; 85025; 87086; 93005; 96361; 96374; 96375; 96376; 99284; 99285